=== PATIENT | female | born 1960 | race Caucasian/White ===

== ENCOUNTER 2023-07-30 15:16 | Outpatient (CLI) | payer MEDICARE, OTHER ==
--- NOTE | 2023-07-31 08:36 | XRAY Report ---
PROCEDURE: Knee 3V RT INDICATIONS: RIGHT KNEE PAIN TECHNIQUE: 3 views of the knee(s) were acquired. COMPARISON: None. FINDINGS: Bones: No fractures or dislocations. Mild medial compartment joint space narrowing. No suspicious b sia lesions. Soft tissues: No knee joint effusion. No suspicious soft tissue calcifications or masses. IMPRESSION: No acute bony abnormality. Mild medial compartment joint space narrowing, suggesting of early arthrit ic changes. Reviewed by: Lisandro Espitia MD on 07/31/2023 8:35 AM PST Approved by: Lisandro Espitia MD on 07/31/2023 8:35 AM PST Station ID: [id number]
== END 2023-07-30 15:17 | disposition home or self-care (01) ==
LOC: DI 15:16
PROVIDERS: ATTEND Student in an Organized Health Care Education/Training Program
DX: M25.561 Pain in right knee (principal)

== ENCOUNTER 2023-08-12 09:42 | Outpatient (CLI) | payer MEDICARE, OTHER ==
--- NOTE | 2023-08-12 12:50 | DEXA Report ---
PROCEDURE: Dexa Spine and/or Hip INDICATIONS: POST MENOPAUSAL TECHNIQUE: Dual energy x-ray absorptiometry (DXA) was performed on a [employer] System. Regions measur ed are the AP Spine, femoral neck, and if needed forearm. COMPARISON: None. FINDINGS: Lumbar Spine: Bone Mineral Density 1.158 g/cm/cm,T score -0.2. Left Femoral Neck: Bone Mineral Density 0.851 g/cm/cm, T score -1.3. Left Hip: Bone Mineral Density 0.859 g/cm/cm,T score -1.2. (T score greater or equal to -1.0: NORMAL) (T score from -1.1 to -2.4: OSTEOPENIA) (T score less than or equal to -2.5 to: OSTEOPOROSIS) Impression: By WHO criteria, this patient has low bone density (osteopenia). Patient is at increased risk for fra cture. Normal bone mineral density of the lumbar spine. Osteopenia of the hip. Patients with diagnosis of osteoporosis or osteopenia should have regular bone mineral density assess ment. For those eligible for Medicare, routine testing is allowed once every 2 years. Testing frequ ency can be increased for patients who have rapidly progressing disease or for those who are receivin g medical therapy to restore bone mass. Reviewed by: Erwin Ch MD on 08/12/2023 12:49 PM PST Approved by: Erwin Ch MD on 08/12/2023 12:49 PM PST Station ID: [id number]
== END 2023-08-12 09:43 | disposition home or self-care (01) ==
LOC: DI 09:42
PROVIDERS: ATTEND Student in an Organized Health Care Education/Training Program
DX: Z78.0 Asymptomatic menopausal state (principal); M85.89 Other specified disorders of bone density and structure, multiple sites